=== PATIENT | male | born 1995 | race Caucasian/White ===

== ENCOUNTER 2017-02-12 11:38 | Outpatient (CLI) | payer BC ==
[2017-02-12 12:02] LABS: Hemoglobin 15.4 g/dL (14.0-18.0); Mean Corpuscular HGB CONC 33.8 g/dL (32.0-36.0); Mean Corpuscular Hemoglobin 31.4 pg (27.0-31.0); Mean Corpuscular Volume 92.7 fl (80.0-94.0); Mean Platelet Volume 6.9 fL (7.4-10.4); Platelet Count 310 thou/uL (130-400); RBC Distribution Width 10.8 % (11.5-14.5); White Blood Cell (WBC) Count 5.4 thou/uL (4.8-10.8)
[2017-02-12 12:23] LABS: Anion Gap 12 mmol/L (10-20); BUN (Urea Nitrogen) 12 mg/dL (8.9-20.6); Calc. Creatinine Clearance 0 mL/min (70-130); Calcium 9.3 mg/dL (7.8-10.44); Carbon Dioxide 26 mmol/L (22-29); Chloride 104 mmol/L (98-107); Estimated GFR-MDRD Greater than 90; Glucose 90 mg/dL (70-105); Potassium 4.1 mmol/L (3.5-5.1); Sodium 138 mmol/L (136-145)
== END 2017-02-12 11:39 | disposition home or self-care (01) ==
LOC: LABBT 11:38
PROVIDERS: ATTEND Specialist
DX: Z01.812 Encounter for preprocedural laboratory examination (principal); L98.8 Other specified disorders of the skin and subcutaneous tissue
CPT/HCPCS: 80048; 85027

== ENCOUNTER 2017-02-18 10:21 | Day surgery (SDC) | payer BC ==
[2017-02-12 11:32] VITALS: BMI 25.1
[2017-02-18] MEDS ORDERED: Ketorolac Tromethamine 30 MG/ML VIAL ONE ×2 (13:39→15:06)
[2017-02-18] MEDS ORDERED: Bacitracin Zinc Ointment 30 gm TUBE ONE (14:56)
[2017-02-18] MEDS ORDERED: Bupivacaine/Epinephrine 0.25% 30 ML VIAL ONE (14:56)
[2017-02-18] MEDS ORDERED: Fentanyl 100 MCG/2 ML VIAL ONE (15:00)
[2017-02-18] MEDS ORDERED: Midazolam HCl 2 mg/2 ml Vial ONE (15:00)
[2017-02-18] MEDS ORDERED: CEFAZOLIN/Water 2 GM/20 ML SYRINGE ONE (15:05)
[2017-02-18] MEDS ORDERED: Ondansetron HCl/PF 4 MG/2 ML Vial ONE (15:06)
[2017-02-18] MEDS ORDERED: Propofol 200 MG/20 ML VIAL ONE (15:06)
[2017-02-18] MEDS ORDERED: Glycopyrrolate 0.2 MG/ML 5 ML SYRINGE ONE (15:06)
[2017-02-18] MEDS ORDERED: Lidocaine 1% PF 5 ML VIAL ONE (15:06)
[2017-02-18] MEDS ORDERED: HYDROcodone/Acetaminophen 5/325 mg Tablet ONE (18:57)
--- NOTE | 2017-02-19 15:48 | OP ---
DATE OF OPERATION: 02/18/2017 PREOPERATIVE DIAGNOSIS: Extensive pilonidal disease PROCEDURE PERFORMED: Pilonidal excision with a layered closure. SURGEON: Alberto Schofield M.D. ANESTHESIA: General endotracheal. INDICATIONS: The patient is a 21-year-old white male. He presents with obvious pilonidal disease wi th multiple pilonidal pits with drainage and inflammation and extensive subcutaneous air. He was mary jane en to the operating room for definitive excision. OPERATIVE PROCEDURE IN DETAIL: Informed consent was obtained. The patient was taken to the operatin g room where general endotracheal anesthesia was obtained with the patient in supine position. He wa s then rolled over in the prone jackknife position. His central buttock hair was trimmed. The buttoc ks were taped apart, and the area was prepped with Betadine and draped in sterile fashion. Examinati on revealed at least three dominant pits which contained hair after extending the subcutaneous tissue . These were cannulated with an 18 gauge Angiocath and infiltrated with methylene blue diluted with hydrogen peroxide. An elliptical incision was then fashioned, which was much more on the right side than on the left side to give an off-centered closure and elevate the gluteal cleft. Dissection was carried through skin and subcutaneous tissue. Electrocautery was used to dissect underneath the area of pilonidal disease, ensuring that I encountered no blue stained tissue. The specimen was removed intact and passed off the field. Meticulous hemostasis was obtained with electrocautery. A flap of fibrofatty tissue was elevated on the right side of midline over the gluteal muscles. The wound was then carefully closed in layers using a series of interrupted sutures of 2-0 Vicryl. The deep layer incorporated bites of the flap on the left as well as the tissue on the right and the sacral fascia t o obliterate the space. The remainder of the wound was closed in layers. The skin was then donya roximated with a series of interrupted sutures of 2-0 nylon placed in vertical mattress fashion. The skin edges were approximated with a running suture of 4-0 Prolene. Antibiotic ointment and dry gauz e dressing was applied. There were no complications. The patient tolerated the procedure well and w as taken to recovery room in stable condition.
== END 2017-02-18 19:42 | disposition home or self-care (01) ==
LOC: SDC 10:21
PROVIDERS: ATTEND Specialist
PROC: 0JB90ZZ Excision of Buttock Subcutaneous Tissue and Fascia, Open Approach (ICD-10-PCS; principal; 2017-02-18)
DX: L05.91 Pilonidal cyst without abscess (principal); Z88.8 Allergy status to other drugs, medicaments and biological substances; Z96.22 Myringotomy tube(s) status; Z90.89 Acquired absence of other organs; Z98.818 Other dental procedure status
CPT/HCPCS: 88304; J0131; J1885; J2001; J2250; J2405; J2704; J3010; Q9968